=== PATIENT | female | born 1980 | race Caucasian/White ===

== ENCOUNTER → 2017-03-14 | Outpatient (CLI) | payer OTHER ==
[~2017-03-14] MED LIST: DILAUDID2 MG PO; ENDOCET 5-3251 EACH PO; FIORICET,ESG1 TABLET PO; IBUPROFEN800 MG PO; Motrin PO; NORTRIPTYLINE H10 MG PO; PRENATAL TABLE1 EAC3 PO; Percocet 5/325,Endoc PO; TYLENOL REGULA325 MG PO; ~No Medications
== END | disposition home or self-care (01) ==
LOC: AMB 13:30
DX: N20.0 Calculus of kidney (principal); Z87.442 Personal history of urinary calculi; Z84.1 Family history of disorders of kidney and ureter; H91.90 Unspecified hearing loss, unspecified ear
CPT/HCPCS: 99212